=== PATIENT | male | born 1940 | race Caucasian/White ===

== ENCOUNTER → 2018-02-13 | Outpatient (CLI) | payer MEDICARE, BC ==
--- NOTE | 2018-02-14 22:52 | SLEEP ---
[address] [address] SLEEP STUDY REPORT Name: SHAKEELCEFERINO Room: [facility]#: [id number] Admission: 02/13/18 Attend Phys: Bailey Doe Discharge: Date of : 42 Report #: [id number] THIS REPORT FOR: //name// CC: Bailey Lowery This study has been reviewed in its entirety by a board certified sleep specialist DATE OF SERVICE: 02/13/2018 ATTENDING PHYSICIAN: Dr. Bailey Daugherty. The patient is 78-year-old who weighs 215 pounds and is 71 inches tall with a BMI of 30. The patient's Ros[place] score was 10-12. The patient underwent a sleep study performed at [facility]. During the night study, the patient spent 395 minutes in bed and slept for 350 minutes with a sleep efficiency of 79.7%. Sleep latency was 26 minutes with a REM latency of 72.8 minutes. Overall, sleep architecture showed normal stage 1 sleep, increased stage 2 sleep, normal slow wave and normal REM sleep. During the night study, the patient had 1 central apnea, no mixed or obstructive apneas and 7 hypopneas. The patient's apnea hypopnea index was only 1.5 per hour with a REM index of 0.9 per hour and supine index of 2.6 per hour. EKG monitoring revealed an average heart rate of 59 beats per minute. No sustained arrhythmias were observed. PLMS were seen at an index of 66 per hour and 12 per hour caused EEG arousals. Nocturnal oximetry study revealed an average oxygen saturation of 95% with a lowest of 90%. Due to low AHI, the patient did not meet the split night criteria for CPAP initiation. IMPRESSION: 1. Overall no clinically significant sleep disordered breathing. The patient's AHI for the entire night was only 1.5 per hour. 2. No clinically significant nocturnal hypoxia. 3. Severe PLMS. RECOMMENDATIONS: 1. The patient did not meet the split night criteria for CPAP [place] [id number] SLEEP STUDY REPORT Name: BECKFORDCEFERINO [facility] [id number] Admission: 02/13/18 Attend Phys: Bailey Doe Discharge: Date of : 42 Report #: [id number] 2. If clinical suspicion for other disorders such as idiopathic hypersomnia or narcolepsy is high, then the patient will need further evaluation such as multiple sleep latency test. 3. The patient should also be further evaluated for symptoms of restless legs during the day and if present, it can be treated with dopaminergic agonist agents. 4. Weight loss is advised. 5. 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 6. Cautioned regarding driving until the patient's hypersomnia is resolved with the above recommendations. <ELECTRONICALLY SIGNED> By: Masoud Escoto MD 02/14/18 [id number] Kaity Escoto MD /nt
== END ==
LOC: M.SLEEPLAB 20:59
DX: G47.61 Periodic limb movement disorder (principal); G47.10 Hypersomnia, unspecified; R06.83 Snoring